=== PATIENT | female | born 1960 | race Caucasian/White ===

== ENCOUNTER → 2016-12-27 | Outpatient (CLI) | payer OTHER ==
[2015-10-07 15:10] VITALS: BP 130/63
[~2016-12-27] MED LIST: CYCL10TA2 PO; ENAL20TA4 PO; INSU100I13 SQ; METF10002 PO; TRAM50TA PO
== END | disposition home or self-care (01) ==
LOC: PF 09:06
PROVIDERS: ATTEND Neuromusculoskeletal Medicine, Sports Medicine
DX: J44.9 Chronic obstructive pulmonary disease, unspecified (principal)
CPT/HCPCS: 94060